=== PATIENT | female | born 1975 | race Caucasian/White ===

== ENCOUNTER 2018-03-01 10:36 | Emergency (ER) | payer MEDICAID ==
[~2018-03-01] VITALS: Ht 154.9 cm; Wt 72.6 kg
[2018-03-01 10:40] VITALS: BP_SYST 126
[2018-03-01] MEDS ORDERED: KETOROLAC TROMETHAMINE 60 MG/2 ML VIAL IM ONE (11:15)
[2018-03-01 12:22] VITALS: BP_SYST 119
== END 2018-03-01 12:22 | disposition home or self-care (01) ==
LOC: SED 10:36
DX: S29.012A Strain of muscle and tendon of back wall of thorax, initial encounter (principal); K52.9 Noninfective gastroenteritis and colitis, unspecified; Z90.710 Acquired absence of both cervix and uterus; X58.XXXA Exposure to other specified factors, initial encounter; Y93.89 Activity, other specified; Y92.89 Other specified places as the place of occurrence of the external cause; Y99.8 Other external cause status
CPT/HCPCS: 72072; 96372; 99283; J1885